=== PATIENT | female | born 1940 | race Caucasian/White ===

== ENCOUNTER → 2018-02-04 | Outpatient (CLI) | payer MEDICARE ==
[~2018-02-04] MED LIST: ACE325 PO; ACET-1927 PO; ASPI-715 PO; ASPI81TA86 PO; AZIT-1 PO; BENZ200C15 PO; BIS10S PR; CALC-649 PO; CELE-1 PO; CETI-169 PO; CHOL500045 PO; ENO40I SQ; ERGO400T10 PO; ESTR1PAT2 TD; ESTR1PAT69 TD; ESTR1PAT83 TD; EZET1TAB55 PO; GLUCOSAMINE 1,1 EACH PO; GUAI600T57 PO; HYDR-2966 PO; IRO150 PO; LISI-355 PO; LISI-362 PO; LOR7.5/325 PO; LUTE20CA11 PO; MOM PO; MULT-820 PO; OMEG-11 PO; PNEU0.5D3 IM; PROM-110 PO; RAL60 PO; RALO60TA12 PO; SIMV-42 PO; SIMV-54 PO; TRI05T TP; VALA100059 PO; VITA400T7 PO; [UNRECOGNIZED DRUG - OTHER] TD
--- NOTE | 2018-02-04 13:57 | RADIOLOGY IMAGING REPORT ---
FACILITY: [facility] - [place] PATIENT NAME: WILLIAM RODRIGUEZ : [id number] MR: [id number] V: [id number] EXAM DATE: ORDERING PHYSICIAN: AUNDREA DAVILA TECHNOLOGIST: Mari Erickson PROCEDURE:BILATERAL DIGITAL SCREENING MAMMOGRAM WITH CAD ASSISTED INTERPRETATION & 3D TOMOSYNTHESIS COMPARISON:Prior mammograms 12/25/16 & 11/03/14 INDICATIONS:screening TECHNIQUE: Routine CC & MLO views of both breasts were performed. FINDINGS: Breast tissue is almost entirely fatty replaced. Retroareolar asymmetries are stable. Benign lymph nodes upper outer quadrant Left breast are stable. Benign vascular calcifications are also noted. No newer or developing masses or suspicious microcalcifications in either breast. DIAGNOSTIC CATEGORY 2--BENIGN FINDING. RECOMMENDATIONS: ROUTINE MAMMOGRAM AND CLINICAL EVALUATION. IMPRESSION: BIRADS 2: Benign finding Recommend the patient resumes screening mammography in 1 year. Dictated by: Franklyn Gonzalez M.D. on 02/04/2018 at 11:03 Transcribed by: PIPO on 02/04/2018 at 13:14 Approved by: Franklyn Gonzalez M.D. on 02/04/2018 at 13:56 [facility]
== END ==
LOC: MAMO 01:49
PROVIDERS: ATTEND Internal Medicine
DX: Z12.31 Encounter for screening mammogram for malignant neoplasm of breast (principal); R92.1 Mammographic calcification found on diagnostic imaging of breast
CPT/HCPCS: 77063; 77067

== ENCOUNTER → 2018-04-03 | Outpatient (CLI) | payer MEDICARE ==
[2018-04-03 07:22] LABS: LDL CHOLESTEROL 55 mg/dl
== END ==
LOC: LAB 06:37
PROVIDERS: ATTEND Internal Medicine
DX: E78.2 Mixed hyperlipidemia (principal); I10 Essential (primary) hypertension
CPT/HCPCS: 36415; 82040; 82247; 82310; 82374; 82435; 82465; 82565; 82947; 83718; 84075; 84132; 84155; 84295; 84450; 84460; 84478; 84520

== ENCOUNTER → 2018-04-10 | Outpatient (CLI) | payer MEDICARE ==
[~2018-04-10] MED LIST changes: +CALC625T80 PO; +POTA-23 PO
== END ==
LOC: LAB 09:53
PROVIDERS: ATTEND Internal Medicine
DX: I10 Essential (primary) hypertension (principal); E78.2 Mixed hyperlipidemia; E87.6 Hypokalemia
CPT/HCPCS: 36415; 82310; 82374; 82435; 82565; 82947; 84132; 84295; 84520

== ENCOUNTER → 2018-04-18 | Outpatient (CLI) | payer MEDICARE | LOC: LAB 12:18 | PROVIDERS: ATTEND Internal Medicine | DX: E87.6 Hypokalemia (principal) | CPT/HCPCS: 36415; 82310; 82374; 82435; 82565; 82947; 84132; 84295; 84520 ==

== ENCOUNTER → 2018-09-30 | Outpatient (CLI) | payer MEDICARE ==
[~2018-09-30] MED LIST changes: +CALC600T63 PO
[2018-09-30 08:51] LABS: LDL CHOLESTEROL 67 mg/dl
== END ==
LOC: LAB 08:17
PROVIDERS: ATTEND Internal Medicine
DX: E78.2 Mixed hyperlipidemia (principal); I10 Essential (primary) hypertension; E87.6 Hypokalemia
CPT/HCPCS: 36415; 82040; 82247; 82310; 82374; 82435; 82465; 82565; 82947; 83718; 84075; 84132; 84155; 84295; 84450; 84460; 84478; 84520

== ENCOUNTER → 2019-03-09 | Outpatient (CLI) | payer MEDICARE ==
[~2019-03-09] MED LIST changes: +ESTR1PAT66 TD
--- NOTE | 2019-03-10 16:44 | RADIOLOGY IMAGING REPORT ---
FACILITY: [facility] [place]IENT NAME: WILLIAM RODRIGUEZ : [id number] MR: [id number] V: [id number] EXAM DATE: [id number] ORDERING PHYSICIAN: OZZY ROJO TECHNOLOGIST: Chanel Peacock PROCEDURE:BILATERAL DIGITAL SCREENING MAMMOGRAM WITH CAD ASSISTED INTERPRETATION & 3D TOMOSYNTHESIS COMPARISON:Prior mammograms 02/04/18, 12/25/16, 11/03/14, 10/20/13, 09/24/12. INDICATIONS:screening FINDINGS: There are scattered areas of fibroglandular density throughout the breasts. The parenchymal pattern has remained stable allowing for difference in mammographic technique & patient positioning. DIAGNOSTIC CATEGORY 1--NEGATIVE. RECOMMENDATIONS: ROUTINE MAMMOGRAM AND CLINICAL EVALUATION. IMPRESSION: BIRADS 1: Negative. No significant abnormality is seen. Dictated by: Angie West M.D. on 03/09/2019 at 17:48 Transcribed by: PIPO on 03/10/2019 at 10:10 Approved by: Angie West M.D. on 03/10/2019 at 16:42 [facility]
== END ==
LOC: MAMO 00:19
PROVIDERS: ATTEND Emergency Medicine
DX: Z12.31 Encounter for screening mammogram for malignant neoplasm of breast (principal)
CPT/HCPCS: 77063; 77067

== ENCOUNTER → 2019-03-31 | Outpatient (CLI) | payer MEDICARE ==
[2019-03-31 13:38] LABS: PLATELET COUNT, AUTOMATED 290 K/uL (150-450)
== END ==
LOC: LAB 13:17
PROVIDERS: ATTEND Emergency Medicine
DX: I10 Essential (primary) hypertension (principal); M85.80 Other specified disorders of bone density and structure, unspecified site
CPT/HCPCS: 36415; 82306; 82607; 85025